=== PATIENT | male | born 1955 | race Caucasian/White ===

== ENCOUNTER 2025-05-24 09:50 | Day surgery (SDC) | payer MEDICARE, OTHER ==
[~2025-05-24] VITALS: Ht 179.1 cm; Wt 89.8 kg
[~2025-05-24 09:50] MED LIST: ATOR20TA66 PO; ENAL-76 PO; SERT-434 PO; ringers solution, lacted 1,000 ML IV SCH
--- NOTE | 2025-05-24 10:47 | ELECTROCARDIOGRAPH REPORT ---
[facility] Test Date: 2025-05-24 Test Time: 10:45:44 Pat Name: LESLY SALAZAR Department: [facility] Patient ID: [facility]-[id number] Room: Gender: M Manager Solution: : [id number] Requested By: ONUR LANDERS Order Number: [id number] Reading MD: Dr. 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 JOHANNA Verduzco Please click the below link to view image of tracing.
[2025-05-24 10:56] VITALS: RESP 15; O2SAT 98
[2025-05-24 10:59] VITALS: BP 141/80; PULSE 75; RESP 16; TEMP 97.8; O2SAT 96
[2025-05-24] MEDS ORDERED: MIDAZolam 1 MG/ML 5ML VIAL ONE (11:52)
[2025-05-24] MEDS ORDERED: fentaNYL/PF 50MCG/1 ML 2ML syringe ONE (11:52)
[2025-05-24 12:30] VITALS: BP 119/62; PULSE 67; RESP 12; O2SAT 92
[2025-05-24 12:40] VITALS: BP 12/79; PULSE 61; RESP 12; O2SAT 92
[2025-05-24 12:50] VITALS: BP 115/74; PULSE 60; RESP 14; O2SAT 93
[2025-05-24 13:00] VITALS: BP 122/71; PULSE 68; RESP 14; O2SAT 95
== END 2025-05-24 13:20 | disposition home or self-care (01) ==
LOC: GI LAB 09:50
PROVIDERS: ATTEND Internal Medicine Gastroenterology
DX: Z12.11 Encounter for screening for malignant neoplasm of colon (principal); K63.5 Polyp of colon; K57.30 Diverticulosis of large intestine without perforation or abscess without bleeding; D12.0 Benign neoplasm of cecum; K64.8 Other hemorrhoids; R94.31 Abnormal electrocardiogram [ECG] [EKG]; Z86.0100 Personal history of colon polyps, unspecified
CPT/HCPCS: 45385; 88305; 93005; 99153; A4620; C1889; G0500; J2250; J3010; J7120; Z7512; 99152